=== PATIENT | female | born 1970 | race American Indian/Alaskan Native ===

== ENCOUNTER 2019-03-01 09:08 | Outpatient (CLI) | payer BC ==
[2019-03-01 09:53] LABS: Hematocrit 39.8 % (30.3-42.9); Hemoglobin 13.6 gm/dl (10.1-14.3); Mean Corpuscular HGB Conc 34 % (30-34); Mean Corpuscular Volume 92 fl (79-97); Platelet Count 273 K/mm3 (140-440)
[2019-03-01 10:05] LABS: Bilirubin,Urine NEG (Negative); Blood,Urine NEG (Negative); Color,Urine Yellow (Yellow); Mucus,Urine FEW /HPF; Protein,Urine <15 mg/dL mg/dL (Negative); Urobilinogen,Urine < 2.0 mg/dL (<2.0); WBC,Urine < 1.0 /HPF (0.0-6.0)
[2019-03-01 10:10] LABS: Red Cell Distribution Width 23.6 % (13.2-15.2)
[2019-03-01 10:11] LABS: Albumin 4.2 g/dL (3.9-5); BUN/Creatinine Ratio 12; Blood Urea Nitrogen 13 mg/dL (7-17); Calcium 8.9 mg/dL (8.4-10.2); Hemolysis Index 3
--- NOTE | 2019-03-01 13:25 | Vascular Lab Report ---
ULTRASOUND RENAL ARTERY DUPLEX IMAGING INDICATION / CLINICAL INFORMATION: atrophy of the kidney; cystitis. COMPARISON: None available. FINDINGS: RIGHT KIDNEY: Size = 12.9 cm. - Echogenicity: Echogenic. - Cortical thickness: Normal. - Hydronephrosis: None. - Cyst or mass: None. - Stones: None seen.. - Renal resistive indices (RI): 0.74, 0.66, 0.71 (Normal < 0.70) - Renal/aortic ratio (RAR): 1.2 (Normal < 3.5) LEFT KIDNEY: Size = 8.3 cm. - Echogenicity: Echogenic. - Cortical thickness: Cortical thinning. - Hydronephrosis: None. - Cyst or mass: None. - Stones: None seen.. - Renal resistive indices (RI): 0.81, 0.8., 0.90 (Normal < 0.70) - Renal/aortic ratio (RAR): 1.0 (Normal < 3.5) URINARY BLADDER: Not visualized. FREE FLUID: None. ADDITIONAL FINDINGS: None. IMPRESSION 1. Echogenic kidneys suggesting medical renal disease. 2. Small left kidney. 3. Elevated left renal resistive indices. Signer Name: Jackeline Caputo MD Signed: 03/01/2019 1:21 PM Workstation Name: [id number]
== END 2019-03-01 09:09 | disposition home or self-care (01) ==
LOC: VAS 09:08
DX: N27.0 Small kidney, unilateral (principal)
CPT/HCPCS: 36415; 80048; 81001; 82040; 84100; 85027; 87086; 93975